=== PATIENT | female | born 1945 | race Caucasian/White ===

== ENCOUNTER 2020-10-23 18:25 | Emergency (ER) | payer OTHER ==
--- OUTSIDE RECORDS SUMMARY | 2020-10-23 18:38 | XMS REPORT | Continuity of Care Document ---
:1945 Author Organization [facility] t Address [address] [place] [address] Care Team Providers Name Role Phone Sang Toure Attending Clinician [phone] Merritt Lemus Attending Clinician Provider, Urgent Care Attending Clinician Unavailable Karlos BRADFORD Attending Clinician Doctor Unassigned, Name Attending Clinician Unavailable Problems Condition Condition Condition Status Onset Resolution Last Treating Co mments Source Name Details Category Date Date Treatment Clinician Date Hyperlipid Hyperlipid Problem Active [facility] Elevated Elevated Diagnosis Active [facility] systolic systolic [facility] blood blood Memoria pressure pressure l reading reading Outpati with with ent diagnosis diagnosis Clin ics of of hypertensi hypertensi on on Thrombophl Thrombophl Problem Active [facility] ebitis of ebitis of Luke s - superficia superficia Me moria l veins of l veins of l left lower left lower Ou tpati extremity extremity ent Clinics Cardiac Cardiac Problem Active [facility] murmur murmur [facility] Cough Cough Diagnosis Active [facility] Upper Upper Diagnosis Active [facility] respirator respirator Mari kes - y tract y tract Memoria infection, infection, l unspecifie unspecifie Ou tpati d type d type ent Clinics Other Other Problem Active [facility] specified specified Luke s - disorders disorders Edilson zi of bone of bone l density density Outpati and and ent structure, structure, Cl inics right right thigh thigh Other Other Problem Active [facility] specified specified Luke s - disorders disorders Edilson zi of bone of bone l density density Outpati and and ent structure, structure, Cl inics left thigh left thigh Vision Vision Problem Active [facility] loss night loss night Mari kes - [facility]oria l [facility] Clinics Environmen Environmen Problem Active [facility] viviana viviana [facility] - allergies allergies Edilson zi l [facility] Clinics Hx of back Hx of back Problem Active [facility] injury injury [facility] Allergies, Adverse Reactions, Alerts Allergy Allergy Status Severity Reaction(s) Onset Inactive Treating Comm ents Source Name Type Date Date Clinician Lisinopr Adverse Active cough [facility] Reaction [facility] Medications Ordered Filled Start Stop Current Ordering Indication Dosage Frequency Signature Comments Components Source Medication Medication Date Date Medication? Clinician (SIG) Name Name Augmentin Augmentin 2018-05- No Rachel Rosa [address] [facility]14 [facility] - 00:[facility]: 00:00 Memoria 00 :00 l [facility] Benzonatate Benzonatate 2018-05- No Rachel Long [address] [facility] - 00[facility]: 00:00 Memoria 00 :00 l [facility] Clinics Fish Oil Fish Oil Yes Rachel Long [address] [facility] Calcarb Calcarb Yes Rachel Long [address] 600/D 600/D [facility] CoQ-10 CoQ-10 Yes Rachel Long [address] with a [facility] - meal Memoria l [facility] Clinics Multivitami Multivitami Yes Rachel Long with [facility] n Adults n Adults minerals Janna es - Memoria l [facility] ent Clinics Vitamin D3 Vitamin D3 Yes Rachel Long [address] [facility] Singulair Singulair Yes Rachel Long [address] in the [facility] - evening [facility]oria l [facility]ics Losartan Losartan Yes Rachel Long TAKE ONE [facility] Potassium Potassium (1) [facility] - TABLET(S) Memoria BY MOUTH l ONCE [facility] Clinics Atorvastati Atorvastati Yes Rachel Long [address] [facility] n Calcium n Calcium [facility] Immunizations Ordered Filled Immunization Date Status Comments Sourc e Immunization Name Name Fluzone Fluzone 2019-03-[address] [facility] - 00:[facility]:00 [facility] FLUZONE HIGH DOSE FLUZONE HIGH DOSE 2018-02-[address] [facility] - OVER 65 OVER 65 00:00:00 [facility] Procedures This patient has no known procedures. Encounters Start End Encounter Admission Attending Care Care Encounter Source Date/Time Date/Time Type Type Clinicians Facility Department ID 2020-10-15 2020-10-15 Outpatient Mesfin [facility] [id number] 00:00:00 00:00:00 [place] [id number] Sang [id number] 2020-10-13 2020-10-13 Outpatient [facility] [id number] 00:00:00 00:00:00 [place] [id number] Sang [id number] 2020-10-13 2020-10-13 Outpatient [facility] [id number] 00:00:00 00:00:00 [place] [id number] Sang [id number] 2020-10-08 2020-10-08 Outpatient [facility] [id number] 00:00:00 00:00:00 [place] [id number] Sang [id number] 2020-10-07 2020-10-07 [facility] [id number] 11:20:00 23:59:00 Encounter Elva Padilla [id number] [place] [id number] [place] [id number] 2020-10-07 2020-10-07 Urgent Provider, [facility] [id number] 10:11:38 11:10:[address] [facility] [id number] Care Valerie [id number] [facility] [id number] nal [address] 2020-09-21 2020-09-21 Outpatient Toure, [facility] [id number] 00:00:00 00:00:00 [place] [id number] Sang [id number] 2020-09-04 2020-09-04 Outpatient Mesfin, [facility] [id number] 00:00:00 00:00:00 [place] [id number] Sang [id number] 2020-08-21 2020-08-21 Outpatient Mesfin, [facility] [id number] 00:00:00 00:00:00 [place] [id number] Sang [id number] 2020-08-13 2020-08-13 Outpatient Mesfin, [facility] [id number] 00:00:00 00:00:00 [place] [id number] Sang [id number] 2020-08-10 2020-08-10 Outpatient Mesfin, [facility] [id number] 00:00:00 00:00:00 [place] [id number] Sang [id number] 2020-08-04 2020-08-04 Outpatient Mesfin, [facility] [id number] 00:00:00 00:00:00 [place] [id number] Sang [id number] 2020-07-30 2020-07-30 [place] [id number] 00:00:00 00:00:00 Catherine Padilla [id number] [place] [id number] Professio [id number] [address] 2020-07-28 2020-07-28 Office [facility] [id number] 08:39:31 09:16:07 Visit Catherine Padilla [id number] [place] [id number] Professio [id number] [address] 2020-07-28 2020-07-28 Office [facility] [id number] 08:39:31 09:16:07 Visit Catherine Padilla [id number] [place] [id number] [phone] [address] 2020-07-28 2020-07-28 Orders Doctor BARDALES [id number] 00:00:00 00:00:00 Only Unassigned, IVELISSE [id number] [place] [facility] [id number] 2020-07-24 2020-07-24 Outpatient Mesfin [facility] [id number] 00:00:00 00:00:00 [place] [id number] Sang [id number] 2020-07-24 2020-07-24 Outpatient Mesfin [facility] [id number] 00:00:00 00:00:00 [place] [id number] Sang [id number] 2020-07-10 2020-07-10 Outpatient Mesfin [facility] [id number] 00:00:00 00:00:00 [place] [id number] Sang [id number] 2020-06-18 2020-06-18 Outpatient Toure, [facility] [id number] 00:00:00 00:00:00 [place] [id number] Sang [id number] 2019-03-14 2019-03-14 [facility] [id number] [facility] 09:40:00 09:40:00 t [facility] Medicine [facility] Clinics 2019-03-01 2019-03-01 [facility] [id number] 15:20:00 15:20:00 t [facility] 2018-12-18 2018-12-18 [facility] [id number] 08:00:00 08:00:00 t [facility] 2018-12-10 2018-12-10 [facility] [id number] 11:03:00 11:03:00 [facility] 2018-09-07 2018-09-07 [facility] [id number] 11:00[facility]00 11:00:00 [facility] 2018-07-16 2018-07-16 [facility] [id number] [address] 16:40:00 16:40:00 [facility] 2018-02-06 2018-02-06 [facility] [id number] 15:00:00 15:00:00 [facility] 2018-01-16 2018-01-16 [facility] [id number] 10:20:00 10:20:00 [facility] 2017-12-11 2017-12-11 [facility] [id number] 11:40:00 11:40:00 [facility] 2017-09-22 2017-09-22 [facility] [id number] 09:45:00 09:45:00 [facility] l Medicine Outpati ent Clinics 2017-08-14 2017-08-14 [facility] [id number] 09:00:00 09:00:00 [facility] l Medicine Outpati ent Clinics Results This patient has no known results.
[2020-10-23] MEDS ORDERED: ONDANSETRON 4 MG/2 ML VIAL ONE (19:43)
[2020-10-23] MEDS ORDERED: MORPHINE 4 MG/ML SYR ONE (19:43)
[2020-10-23] MEDS ORDERED: DIAZEPAM 10 MG/2 ML INJ SYRINGE ONE (20:56)
--- NOTE | 2020-10-23 21:10 | RAD REPORT ---
EXAM DESCRIPTION: CT - Stone Protocol - 10/23/2020 8:46 pm CLINICAL HISTORY: constipation, urinary retention COMPARISON: No comparisons TECHNIQUE: Axial 5 mm thick images were obtained without oral or IV contrast. The [id number] span s the entirety of the system including uppermost abdomen and lung bases. All CT scans are performed using dose optimization technique as appropriate and may include automated exposure control or mA/KV adjustment according to patient size. FINDINGS: No hydronephrosis is present and no obstructing ureteral calculi. No suspicious renal mass es. Isodense masses and pyelonephritis are not excluded on a stone protocol CT scan. No significant a drenal finding. Urinary bladder is fully contracted around a Matias catheter. Calcified fibroid uterus is present. No ovarian abnormality seen. Imaged portions of the liver, spleen and pancreas show no suspicious findings on non-contrast imaging . No gallbladder or biliary tree abnormality identified. No suspicious bowel findings. Garnett of the stomach are accentuated due to lack of intra lumen content . No acute GI finding identifiable. No hernia, mass or bulky lymphadenopathy noted. No free air, free fluid or inflammatory stranding. T12 vertebral body show 70 percent compression fracture deformity. Posterior wall height is generally preserved. No lytic or blastic component. This is very likely chronic compression fracture. Patient has accentuated thoracic kyphosis and accentuated lumbar lordosis. Left ischium is fractured. There appears to be early callus formation indicating that this is not an acute process. There is probable remodeling at the left-side pubic symphysis from old trauma. Bilateral sacral ala fractures are prese nt. Femur fractures are not identifiable. Anterior column left acetabulum fracture is present there i s suggestion of callus formation in this probably dates to the same time as the left ischium fracture . IMPRESSION: No hydronephrosis, obstructing calculus or acute finding identifiable. Isodense masses and pyelonephritis are not excluded on stone protocol technique. No acute GI process identified. There is moderate stool volume in the colon but this does not overall appear to be constipation process. Approximately 70% wedge compression fracture of T12 believed to be chronic, subacute left ischium and anterior column acetabulum fractures, and bilateral sacral ala fractures of uncertain age. Correlati on is needed with any recent fall episodes.
[2020-10-23 21:32] LABS: Absolute Lymphocytes (CBC) 1.2 K/uL (0.7-4.9); Basophils % 0.3 % (0-1.3); Hematocrit 36.7 % (36.0-45.0); Lymphocytes % 11.7 % (15.3-44.8); MPV 9.1 fL (7.6-11.3); RBC Red Blood Cell Count 3.98 M/uL (3.86-4.86)
[2020-10-23 21:46] LABS: Albumin 3.2 g/dL (3.4-5.0); Bilirubin Total 0.5 mg/dL (0.2-1.0); Protein, Total 7.4 g/dL (6.4-8.2)
[2020-10-23 21:48] LABS: Potassium 3.5 mmol/L (3.5-5.1)
[2020-10-23] MEDS ORDERED: HYDROMORPHONE HCL 0.5 MG/0.5 ML INJ ONE (22:53)
--- NOTE | 2020-10-23 23:34 | EDPHYS ---
Physician Documentation [facility] Name: Mandie Garcia Age: 75 yrs Sex: Female : 1945 Arrival Date: 10/23/2020 Time: 18:29 Bed 13 Private MD: ED Physician Bree Carreon HPI: 10/23 19:00 This 75 yrs old Female presents to ER via Ambulatory with complaints of jmm Unable to Urinate. 19:00 The patient presents with pain, that is acute. Onset: The symptoms/episode jmm began/occurred gradually, 3 week(s) ago. Modifying factors: The symptoms are alleviated by nothing. the symptoms are aggravated by movement. This is a 75 year old female with a history of HTN that presents to the ED with complaints of urinary retention and 10/10 right leg pain when attempting to sit. Patient states she had a fall approx 3 weeks ago and sustained left sided pelvic fractures currently under the care of Dr. Ha. Patient states she has had difficulty with bowel movements she attributed to opiod pain medication. Denies weakness or numbness in her legs. Denies back pain. . Historical: - Allergies: 18:39 Lisinopril; ll1 - PMHx: 18:39 High Cholesterol; Hypertension; ll1 - PSHx: 18:39 cataract repair; ll1 - Immunization history:: Client reports receiving the 2nd dose of the Covid vaccine, Flu vaccine is up to date. - Social history:: Smoking status: Patient denies any tobacco usage or history of. ROS: 19:00 Constitutional: Negative for fever, chills, and weight loss, Cardiovascular: Negative jmm for chest pain, palpitations, and edema, Respiratory: Negative for shortness of breath, cough, wheezing, and pleuritic chest pain, Abdomen/GI: Negative for abdominal pain, nausea, vomiting, diarrhea, and constipation. 19:00 : Positive for urinary symptoms. 19:00 All other systems are negative. Exam: 19:00 Constitutional: This is a well developed, well nourished patient who is awake, alert, jmm and in no acute distress. Head/Face: atraumatic. Eyes: EOMI, no conjunctival erythema appreciated ENT: Moist Mucus Membranes Neck: Trachea midline, Supple Chest/axilla: Normal chest wall appearance and motion. Cardiovascular: Regular rate and rhythm. No edema appreciated Respiratory: Normal respirations, no respiratory distress appreciated 19:00 Abdomen/GI: Rectal exam: rectal tone poor. 19:00 Musculoskeletal/extremity: ROM: FROM appreciated, extensor hallucis longus intact bilaterally, sensation intact bilaterally. 19:00 Skin: Appearance: Color: normal in color. 19:00 Neuro: Orientation: is normal, Mentation: is normal, Memory: is normal, Sensation: is normal. 19:00 Psych: Behavior/mood is pleasant, cooperative. Vital Signs: 18:42 BP 178 / 63; Pulse 64; Resp 16; Temp 98.5; Pulse Ox 98% ; Pain 10/10; ll1 19:53 BP 171 / 85; Pulse 63; Resp 18; Pulse Ox 99% on R/A; zb 20:20 BP 170 / 83; Pulse 70; Resp 16; Pulse Ox 100% on R/A; zb 21:14 BP 168 / 70; Pulse 60; Resp 16; Pulse Ox 97% on R/A; zb 22:37 BP 142 / 85; Pulse 65; Resp 19; Pulse Ox 99% ; rr5 23:14 BP 167 / 64; Pulse 67; Resp 16; Pulse Ox 98% on R/A; rr5 MDM: 19:00 [facility] medically [facility]. [facility] 23:29 Data reviewed: vital signs, nurses notes. Counseling: I had a detailed discussion with jerrica the patient and/or guardian regarding: the historical points, exam findings, and any diagnostic results supporting the discharge/admit diagnosis, lab results, radiology results, the need to transfer to another facility. ED course: I initially discussed the patient with neurology at [facility] whom recommended emergent imaging. Unable to accept due to lack of MRI and Neurosurgery. Patient accepted to [facility] trauma. Patient has a preference for [facility] and [facility]. 10/23 20:27 Order name: CBC with Diff; Complete Time: 21:36 [facility] 10/23 20:27 Order name: CMP; Complete Time: 21:50 [facility] 10/23 20:26 Order name: US Extremity Venous Unilateral Ltd [facility] 10/23 20:27 Order name: CT Stone Protocol; Complete Time: 21:13 [facility] 10/23 22:57 Order name: SARS-COV-2 RT PCR; Complete Time: 22:58 [facility] 06/18 19:01 Order name: Bladder Scanner; Complete Time: 19:11 [facility] 10/23 19:01 Order name: Saline Lock; Complete Time: 19:49 [facility] 10/23 19:01 Order name: Matias Leg Bag; Complete Time: 20:07 [facility] Administered Medications: 19:20 Drug: morphine 4 mg {Note: RASS 0.} Route: IVP; Site: left antecubital; zb 20:28 Follow up: Response: No adverse reaction; Pain is unchanged, physician notified; RASS: zb Agitated (+2) 19:20 Drug: Zofran (Ondansetron) 4 mg Route: IVP; Site: left antecubital; zb 20:28 Follow up: Response: No adverse reaction; Marked relief of symptoms zb 20:50 Drug: Valium (diazepam) 2 mg Route: IVP; Site: left antecubital; zb 21:13 Follow up: Response: No adverse reaction; Marked relief of symptoms; Pain is decreased; zb RASS: Drowsy (-1) 22:37 Drug: Dilaudid (HYDROmorphone) 0.5 mg {Note: rass 0.} Route: IVP; Site: left rr5 antecubital; 23:28 Follow up: Response: No adverse reaction; Marked relief of symptoms; Pain is decreased; rr5 RASS: Alert and Calm (0) 10/24 00:18 Drug: Dilaudid (HYDROmorphone) 0.5 mg {Note: RASS +0.} Route: IVP; Site: left zb antecubital; 00:18 Follow up: Response: Medication administered at discharge.; Medication administered at zb transfer Disposition: 14:41 Co-signature as Attending Physician, Bree Carreon MD. ma2 Disposition: 10/23/20 23:33 Transfer ordered to [facility]. Diagnosis is Urinary Retention. - Reason for transfer: Higher level of care. - Accepting physician is Dr. Murillo. - Condition is Stable. - Problem is new. - Symptoms are unchanged. Signatures: Dispatcher [employer] EDMS Yonathan Begum PA PA jmm Alzahri, Mohammad, MD MD ma2 Adam Elizondo RN RN rr5 Negin Suarez RN RN ll1 Mackenzie Sousa RN RN zb Corrections: (The following items were deleted from the chart) 10/23 22:02 21:39 CORONAVIRUS+MR.LAB.BRZ ordered. EDMS EDMS 23:31 23:29 ED course: I initially discussed the patient with neurology at [facility] mirna becerril whom recommended emergent imaging. Unable to accept due to lack of MRI and Neurosurgery. Patient accepted to [facility]. . [facility] 10/24 00:22 10/23 23:33 10/23/2020 23:33 Transfer ordered to [facility]. Diagnosis is zb Urinary Retention. Reason for transfer: Higher level of care. Accepting physician is Dr. Murillo. Condition is Stable. Problem is new. Symptoms are unchanged. jerrica
--- NOTE | 2020-10-23 23:34 | ER ---
Nurse's Notes [facility] Name: Mandie Garcia Age: 75 yrs Sex: Female : 1945 Arrival Date: 10/23/2020 Time: 18:29 Bed 13 Private MD: Diagnosis: Urinary Retention Presentation: 10/23 18:42 Chief complaint: Patient states: Unable to urinate today. States her last urination was ll1 some time throughout last night. Also reports constipation, but had a small hard BM today. No fever. States she hurt her R hip 3 weeks ago, and has been on "opioids" for pain. Coronavirus screen: Client denies travel out of the [place] in the last 14 days. At this time, the client does not indicate any symptoms associated with coronavirus-19. Ebola Screen: Patient denies travel to an Ebola-affected area in the 21 days before illness onset. Initial Sepsis Screen: Does the patient meet any 2 criteria? No. Patient's initial sepsis screen is negative. Does the patient have a suspected source of infection? Yes: Dysuria/Frequency/Urgency/UTI Acute abdominal pain. Risk Assessment: Do you want to hurt yourself or someone else? Patient reports no desire to harm self or others. Onset of symptoms was October 22, 2020. 18:42 Method Of Arrival: Ambulatory ll1 18:42 Acuity: NAKUL 2 ll1 Historical: - Allergies: 18:39 Lisinopril; ll1 - PMHx: 18:39 High Cholesterol; Hypertension; ll1 - PSHx: 18:39 cataract repair; ll1 - Immunization history:: Client reports receiving the 2nd dose of the Covid vaccine, Flu vaccine is up to date. - Social history:: Smoking status: Patient denies any tobacco usage or history of. Screenin:20 Abuse screen: Denies threats or abuse. Denies injuries from another. Nutritional zb screening: No deficits noted. Tuberculosis screening: No symptoms or risk factors identified. Fall Risk Ambulatory Aid- Crutches/Cane/Walker (15 pts). Total Hinton Fall Scale indicates High Risk Score (45 or more points). Fall prevention measures have been instituted. Side Rails Up X 2 Placed Close to Nursing Station Frequent Obs/Assessments Occuring Family Present and informed to notify staff if the need to leave the bedside As available patient and family educated on Fall Prevention Program and Strategies. Assessment: 19:20 Reassessment:. General: Appears in no apparent distress. uncomfortable, Behavior is zb calm, cooperative, appropriate for age, anxious. Pain: Complains of pain in suprapubic area Pain does not radiate. Pain currently is 8 out of 10 on a pain scale. Quality of pain is described as tender. Neuro: Level of Consciousness is awake, alert, obeys commands, Oriented to person, place, time, situation. Cardiovascular: Capillary refill < 3 seconds Patient's skin is warm and dry. Respiratory: Airway. GI: Abdomen is round Bowel sounds present X 4 quads. Abdomen is tender to palpation in suprapubic area. : Reports inability to void, since today. Derm: Skin is intact, is healthy with good turgor. Musculoskeletal: Circulation, motion, and sensation intact. Range of motion: intact in all extremities. 20:20 Reassessment: Patient appears in no apparent distress at this time. Patient and/or zb family updated on plan of care and expected duration. Pain level reassessed. Patient is alert, oriented x 3, equal unlabored respirations, skin warm/dry/pink. Matias in place. 21:13 Reassessment: Patient appears in no apparent distress at this time. Patient and/or zb family updated on plan of care and expected duration. Pain level reassessed. Patient is alert, oriented x 3, equal unlabored respirations, skin warm/dry/pink. Patient states feeling better. Patient states symptoms have improved. 22:45 Reassessment: patient c/o pain. notified ecp medication ordered. rr5 23:15 Reassessment: Patient appears in no apparent distress at this time. Patient and/or rr5 family updated on plan of care and expected duration. Pain level reassessed. Patient is alert, oriented x 3, equal unlabored respirations, skin warm/dry/pink. Vital Signs: 18:42 BP 178 / 63; Pulse 64; Resp 16; Temp 98.5; Pulse Ox 98% ; Pain 10/10; ll1 19:53 BP 171 / 85; Pulse 63; Resp 18; Pulse Ox 99% on R/A; zb 20:20 BP 170 / 83; Pulse 70; Resp 16; Pulse Ox 100% on R/A; zb 21:14 BP 168 / 70; Pulse 60; Resp 16; Pulse Ox 97% on R/A; zb 22:37 BP 142 / 85; Pulse 65; Resp 19; Pulse Ox 99% ; rr5 23:14 BP 167 / 64; Pulse 67; Resp 16; Pulse Ox 98% on R/A; rr5 ED Course: 18:29 Patient arrived in ED. ds1 18:39 Arm band placed on Patient placed in an exam room, on a stretcher. ll1 18:44 Triage completed. ll1 18:44 Mackenzie Sousa, RN is Primary Nurse. zb 18:47 Yonathan Begum PA is PHCP. jmm 18:47 Bree Carreon MD is Attending Physician. jmm 19:10 Inserted saline lock: in left antecubital area, using aseptic technique. Blood zb collected. 19:12 Bladder scan completed. 309cc. mh5 19:53 Patient has correct armband on for positive identification. Pulse ox on. NIBP on. zb 19:57 Matias cath inserted, using sterile technique, 16 Fr., by ca, balloon inflated, to bb gravity drainage, Patient tolerated well. 20:45 CT Stone Protocol In Process Unspecified. EDMS 21:07 US Extremity Venous Unilateral Ltd In Process Unspecified. EDMS 21:42 initiated a transfer with Adama from the [facility] Transfer Center at the request of the patient. 21:45 COVID swab sent to lab. zb 21:52 connected the neurologist smoke control supervisor for [facility] Indra Chou with Yonathan for patient transfer eb consultation. 22:02 initiated a transfer with Gia from the [facility]. eb 22:08 per Gia at the [facility] transfer Center [facility] Indra Chou is at capacity/ she will try the [facility] location. 22:33 connected the emergency room physician from the [facility] with Yonathan Cornejo for patient transfer consultation. 22:41 [facility] called to decline the patient in transfer due to not having a neurosurgeon smoke control supervisor. eb 22:44 initiated a transfer with Hetal from the [facility]. eb 22:56 administrative approval given by Hetal Corcoran Rn/ patient has been accepted to [facility] ER/ Dr. Juan Carlos Murillo has accepted the patient in transfer/ report to be called to [phone]. 23:05 [facility] called for transport ETA 45 mins. eb 23:28 No provider procedures requiring assistance completed. Patient transferred, IV remains rr5 in place. Administered Medications: 19:20 Drug: morphine 4 mg {Note: RASS 0.} Route: IVP; Site: left antecubital; zb 20:28 Follow up: Response: No adverse reaction; Pain is unchanged, physician notified; RASS: zb Agitated (+2) 19:20 Drug: Zofran (Ondansetron) 4 mg Route: IVP; Site: left antecubital; zb 20:28 Follow up: Response: No adverse reaction; Marked relief of symptoms zb 20:50 Drug: Valium (diazepam) 2 mg Route: IVP; Site: left antecubital; zb 21:13 Follow up: Response: No adverse reaction; Marked relief of symptoms; Pain is decreased; zb RASS: Drowsy (-1) 22:37 Drug: Dilaudid (HYDROmorphone) 0.5 mg {Note: rass 0.} Route: IVP; Site: left rr5 antecubital; 23:28 Follow up: Response: No adverse reaction; Marked relief of symptoms; Pain is decreased; rr5 RASS: Alert and Calm (0) 10/24 00:18 Drug: Dilaudid (HYDROmorphone) 0.5 mg {Note: RASS +0.} Route: IVP; Site: left zb antecubital; 00:18 Follow up: Response: Medication administered at discharge.; Medication administered at zb transfer Output: 10/23 21:45 Urine: 1200ml (Matias); Total: 1200ml. zb Outcome: 23:28 Transferred by ground EMS to [facility], Transfer form completed. rr5 23:28 Condition: stable 23:28 Instructed on the need for transfer, Demonstrated understanding of instructions. 23:33 ER care complete, transfer ordered by MD. becerril 10/24 00:22 Patient left the ED. zb Signatures: Dispatcher [employer] EDMS Yonathan Begum PA PA jmm [place], Demi ds1 Maida Conn RN RN [facility] Cathy Chavarria Raymond, RN RN rr5 Negin Suarez RN RN ll1 Mackenzie Sousa RN RN zb Corrections: (The following items were deleted from the chart) 10/23 18:45 18:42 Chief complaint: Patient states: Unable to urinate today. States her last ll1 urination was some time throughout last night. Also reports constipation, but had a small hard BM today. No fever. States she hurt her R hip 3 weeks ago, and has been on opioids. ll1 21:54 21:42 initiated a transfer with Adama from the [facility] Transfer Center. eb eb
[2020-10-24] MEDS ORDERED: HYDROMORPHONE HCL 0.5 MG/0.5 ML INJ ONE (00:35)
[2020-10-24 01:10] VITALS: TEMP 98.5
[2020-10-24 01:19] VITALS: BP 167/64; O2SAT 98
--- NOTE | 2020-10-24 07:23 | RAD REPORT ---
EXAM DESCRIPTION: USExtremity Venous Uni Ltd10/23/2020 9:07 pm CLINICAL HISTORY: Right leg swelling. COMPARISON: None. FINDINGS: Right common femoral, superficial femoral, popliteal and right posterior tibial veins are compressible and demonstrate augmentation. Doppler demonstrates good flow. IMPRESSION: No evidence of deep venous thrombosis involving the right lower extremity.
== END 2020-10-24 00:22 | disposition short-term general hospital (02) ==
LOC: ER 18:25
DX: R33.9 Retention of urine, unspecified (principal); I10 Essential (primary) hypertension; Z88.8 Allergy status to other drugs, medicaments and biological substances; Z20.822 Contact with and (suspected) exposure to COVID-19
CPT/HCPCS: 85025; 36415; 80053; 76377; 74176; 93971; U0003; J3360; J1170 ×2; J2405; 51702; 96374; 96375; 99285